=== PATIENT | male | born 1950 | race Caucasian/White ===

== ENCOUNTER → 2017-02-01 | Outpatient (CLI) | payer MEDICARE ==
[~2017-02-01] MED LIST: CITA40TA4 PO; GLUC500T4 PO; MULT1TAB84 PO
[2017-02-01 09:33] LABS: HEMATOCRIT 39.5 % (39.0-51.0); MEAN CELL VOLUME 93.8 FL (80.0-100.0); MEAN CORPUSCULAR HEMOGLOBIN 31.7 PG (27.0-34.0); MEAN CORPUSCULAR HGB CONC 33.8 % (32.0-36.0); PLATELET COUNT 190 TH/MM3 (150-450); RED BLOOD COUNT 4.21 MIL/MM3 (4.50-5.90); RED CELL DISTRIBUTION WIDTH 13.1 % (11.6-17.2); REVIEW FLAG FINAL; WHITE BLOOD COUNT 5.1 TH/MM3 (4.0-11.0)
== END ==
LOC: CPRE 08:30
PROVIDERS: ATTEND Specialist
DX: Z01.812 Encounter for preprocedural laboratory examination (principal)
CPT/HCPCS: 36415; 85027

== ENCOUNTER → 2017-02-02 | Day surgery (SDC) | payer MEDICARE ==
--- NOTE | 2017-02-01 18:00 | MH ---
cc: YG AMBROSE DATE OF ADMISSION 02/02/2017 INDICATION A 66-year-old gentleman with nasal fracture for open septal reconstruction, bilateral inferior turbinectomy, bilateral maxillary antrostomy. PAST MEDICAL HISTORY Unremarkable. PAST SURGICAL HISTORY Unremarkable. REVIEW OF SYSTEMS Unremarkable. FAMILY HISTORY AND SOCIAL HISTORY Unremarkable. PHYSICAL EXAMINATION GENERAL: Well-appearing patient acute distress noted. HEENT: Exam reveals septal deviation and external nasal deformity. LUNGS: Clear. HEART: Regular rate and rhythm. ABDOMEN: Soft and nontender. EXTREMITIES: Without cyanosis, clubbing or edema. NEUROLOGIC: Alert, oriented, nonfocal neurologic exam. IMPRESSION The patient with nasal obstruction for surgical correction. Instructed in method of surgery and possible complications to include anesthetic complications, cardiac difficulty, pulmonary difficulty, stroke, or even . Surgical complications bleeding, infection, risk of transfusion, injury to orbit including blindness and diplopia, injury to brain including CSF leak, meningitis, brain abscess or even . The patient appeared to agree, accept and understand above-mentioned risks and benefits. In addition no guarantees or warranties regarding outcome were given. We will therefore proceed with surgery. MD JERILYN Hurtado/MATTHIAS /5:12 PM /5:55 PM
[~2017-02-02] VITALS: Ht 172.7 cm; Wt 88.6 kg
[~2017-02-02] MED LIST changes: +ACETAMINOPHEN/HYDROcodone 325 MG/7.5 MG TAB PO PRN; +DO NOT ADM ANY ANTICOAGULANT DRUGS XX PRN; +EPINEPHrine HCL (1:1000) 30 MG/30 ML VIAL ONE; +INSULIN HUMAN REGULAR 1,000 UNITS/10 ML VIAL SQ PRN; +LACTATED RINGER'S 1000 ML IV SCH; +LIDOCAINE 1%/EPINEPHrine 1:100,000 SOLN 20 ML VIAL ONE; +METOPROLOL TARTRATE 25 MG TAB PO PRN; +MIDAZOLAM HCL 2 MG/2 ML VIAL ONE; +MORPHINE SULFATE 4 MG/ML INJ IV PRN; +ONDANSETRON HCL 4 MG/2 ML VIAL IV PUSH PRN; +PROPOFOL 200 MG/20 ML AMP IV ONE; +SODIUM CHLORID 0.9% 500 ML IV SCH
[2017-02-02 07:57] VITALS: BP 139/85; PULSE 49; RESP 20; TEMP 97.7; O2SAT 100
[2017-02-02 14:40] VITALS: BP 156/91; PULSE 59; RESP 20; TEMP 97.9; O2SAT 100
--- NOTE | 2017-02-05 10:03 | MP ---
cc: YG AMBROSE DATE OF SURGERY: 02/02/2017 PREOPERATIVE DIAGNOSIS Nasal fracture and nasal obstruction. POSTOPERATIVE DIAGNOSIS: Nasal fracture and nasal obstruction. PROCEDURE Open septal reconstruction. ANESTHESIA: General anesthesia ESTIMATED BLOOD LOSS Minimal. COMPLICATIONS: No complications. OPERATING SURGEON Dr. Ambrose. OPERATION: The patient was prepped and draped in the usual fashion. 1% Xylocaine, 1:100,000 epinephrine injected along the nasal maxillary suture line bilaterally and intranasally on the septum bilaterally. Under direct visualization an elevator was placed underneath the infractured segment on the right side and the infractured segment was easily replaced in its natural position but kept falling back into the infractured space. The outfractured segment was also placed in its natural position with force and packing was placed underneath the infractured segment to keep it in place. Once this was achieved a mucoperichondrial incision was made on the left side of the septum, perichondrial flap elevated. Significant amount of bone and cartilage removed to improve nasal airway and reduce nasal fracture. Mucoperichondrial flap resutured. No active bleeding noted. The patient tolerated the procedure well. Yg Ambrose MD JERILYN/DENITA /8:00 AM /9:55 AM
== END | disposition home or self-care (01) ==
LOC: HSDC 06:58 → EDUNIT# 10:00
PROVIDERS: ATTEND Specialist
DX: S02.2XXA Fracture of nasal bones, initial encounter for closed fracture (principal); J34.89 Other specified disorders of nose and nasal sinuses
CPT/HCPCS: 00160; 21336; J0171; J2250; J3010; J7120